=== PATIENT | male | born 1975 | race Caucasian/White ===

== ENCOUNTER 2019-02-06 14:47 | Inpatient (IN) | payer MEDICAID ==
[~2019-02-06] VITALS: Ht 182.9 cm; Wt 148.3 kg
[2019-02-06 16:32] LABS: BASOPHILS % 0.6 % (0.0-2.0); EOSINOPHILS % 2.1 % (0.0-5.0); HEMATOCRIT. 25.7 % (42.0-52.0); HEMOGLOBIN. 9.3 g/dL (14.0-18.0); LYMPHOCYTES % 8.2 % (20.0-50.0); MEAN CORPUSCULAR HEMOGLOBIN 38.6 pg (28.0-32.0); MEAN CORPUSCULAR VOLUME 107.1 fL (80.0-94.0); MONOCYTES % 9.7 % (2.0-8.0); NEUTROPHILS % 79.4 % (40.0-76.0); RED CELL DISTRIBUTION WIDTH 16.2 % (11.6-14.6)
[2019-02-06 16:36] LABS: CHLORIDE 92 mEq/L (98-107)
[2019-02-06 17:05] LABS: MEAN PLATELET VOLUME 8.8 fl (7.4-10.4); PLATELET 61 x1000/uL (130-400)
[2019-02-06] MEDS ORDERED: AZITHROMYCIN 500 MG in DEXT 5% WATER 250 ML IV ONE (17:30)
[2019-02-06] MEDS ORDERED: CEFTRIAXONE 1 G PREMIX 50 ML IV ONE (17:30)
[2019-02-06] MEDS ORDERED: SODIUM CHLORIDE 0.9% 250 ML IV NR (21:13)
[2019-02-06] MEDS ORDERED: TRAMADOL 50MG TABLET PO PRN (21:14)
[2019-02-06] MEDS ORDERED: ALBUMIN HUMAN 25GM/500ML (5%) IV NR (21:45)
[2019-02-07] VITALS (8 sets, daily range): BP systolic 96–121; BP diastolic 31–47
[2019-02-07] MEDS ORDERED: SODIUM CHLORIDE 0.9% 250 ML IV NR (01:30)
[2019-02-07] MEDS: IPRATROPIUM/ALBUTEROL 0.5-3(2.5)MG/3ML NEB HHN PRN ×4 (02:08→21:34)
[2019-02-07] MEDS ORDERED: SPIR50TA5 MT (04:58)
[2019-02-07] MEDS ORDERED: FURO40TA5 MT (04:58)
[2019-02-07] MEDS ORDERED: PROP10TA10 MT (04:59)
[2019-02-07] MEDS: ACETAMINOPHEN 325MG TABLET PO PRN (05:51)
[2019-02-07] MEDS: PANTOPRAZOLE SODIUM 40 MG/VIAL IV SCH (08:46)
[2019-02-07] MEDS: HYDROCODONE/ACETAMINOPHEN 5/325MG TABLET PO PRN ×2 (09:00→18:12)
[2019-02-07] MEDS ORDERED: ONDANSETRON HCL 4MG/2ML INJ IV PRN ×2 (09:00→09:15)
[2019-02-07 10:32] LABS: BASOPHILS % 0.4 % (0.0-2.0); EOSINOPHILS % 2.3 % (0.0-5.0); HEMATOCRIT. 21.4 % (42.0-52.0); HEMOGLOBIN. 7.7 g/dL (14.0-18.0); LYMPHOCYTES % 9.5 % (20.0-50.0); MEAN CORPUSCULAR VOLUME 108.7 fL (80.0-94.0); MEAN PLATELET VOLUME 8.9 fl (7.4-10.4); MONOCYTES % 10.7 % (2.0-8.0); NEUTROPHILS % 77.1 % (40.0-76.0); RED BLOOD CELL COUNT 1.97 mill/uL (4.7-6.1)
[2019-02-07 12:21] LABS: CHLORIDE 94 mEq/L (98-107)
[2019-02-07 14:07] LABS: PLATELET 50 x1000/uL (130-400)
[2019-02-07] MEDS ORDERED: FUROSEMIDE 40MG/4ML VIAL IVP NR (14:15)
[2019-02-07] MEDS: CEFEPIME 2,000 MG in DEXT 5% WATER 100 ML IV SCH (15:54)
[2019-02-07 16:56] LABS: INR 2.8; PARTIAL THROMBOPLASTIN TIME 67.8 sec (23.4-31.0); PROTHROMBIN TIME 27.4 sec (9.6-11.0)
[2019-02-07 17:12] LABS: HEPATITIS B SURFACE ANTIGEN NEGATIVE
[2019-02-07 17:41] LABS: HEPATITIS A AB IGM NEGATIVE (NEGATIVE)
[2019-02-07 19:08] LABS: TOTAL IRON BINDING CAPACITY 183 ug/dL (250-450)
[2019-02-07] MEDS: FUROSEMIDE 40MG/4ML VIAL IVP SCH (21:06)
[2019-02-07 21:52] LABS: FERRITIN 693 ng/mL (22-322)
[2019-02-07 22:05] LABS: VITAMIN B12 SERUM >2000 pg/mL pg/mL (211-911)
[2019-02-08] VITALS: BP 122/45
[2019-02-08] MEDS: CEFEPIME 2,000 MG in DEXT 5% WATER 100 ML IV SCH ×2 (02:54→16:33)
[2019-02-08] MEDS: IPRATROPIUM/ALBUTEROL 0.5-3(2.5)MG/3ML NEB HHN PRN ×3 (03:10→21:42)
[2019-02-08 04:00] VITALS: BP 111/38
[2019-02-08] MEDS: HYDROCODONE/ACETAMINOPHEN 5/325MG TABLET PO PRN ×2 (05:03→12:40)
[2019-02-08] MEDS ORDERED: LORAZEPAM 1MG TABLET PO NR (05:45)
[2019-02-08 08:00] VITALS: BP 109/38
[2019-02-08] MEDS ORDERED: PHYTONADIONE 10MG/ML AMP IM NR (11:15)
[2019-02-08 12:00] VITALS: BP 110/35
[2019-02-08] MEDS ORDERED: PHYTONADIONE 10MG/ML AMP SUBCUT NR (12:15)
[2019-02-08] MEDS: SPIRONOLACTONE 50MG TABLET PO SCH (12:21)
[2019-02-08] MEDS: PANTOPRAZOLE SODIUM 40 MG/VIAL IV SCH (12:21)
[2019-02-08] MEDS: FUROSEMIDE 40MG/4ML VIAL IVP SCH ×2 (12:21→18:03)
[2019-02-08 14:20] LABS: MEAN CORPUSCULAR HEMOGLOBIN 39.5 pg (28.0-32.0); MEAN CORPUSCULAR VOLUME 107.9 fL (80.0-94.0); MEAN PLATELET VOLUME 8.8 fl (7.4-10.4); RED CELL DISTRIBUTION WIDTH 16.1 % (11.6-14.6)
[2019-02-08 14:33] LABS: HEMATOCRIT. 20.5 % (42.0-52.0); HEMOGLOBIN. 7.5 g/dL (14.0-18.0); PLATELET 42 x1000/uL (130-400)
[2019-02-08 14:54] LABS: PLATELET ESTIMATE MARKEDLY DECREASED
[2019-02-08 14:55] LABS: CHLORIDE 94 mEq/L (98-107)
[2019-02-08 16:00] VITALS: BP 96/32
[2019-02-08 20:00] VITALS: BP 118/35
[2019-02-08 21:19] LABS: PROTHROMBIN TIME 29.1 sec (9.6-11.0)
[2019-02-09] VITALS (18 sets, daily range): BP systolic 90–113; BP diastolic 35–54
[2019-02-09] MEDS: CEFEPIME 2,000 MG in DEXT 5% WATER 100 ML IV SCH ×2 (02:21→18:01)
[2019-02-09] MEDS: HYDROCODONE/ACETAMINOPHEN 5/325MG TABLET PO PRN ×3 (02:23→21:16)
[2019-02-09 05:08] LABS: CHLORIDE 93 mEq/L (98-107)
[2019-02-09 05:13] LABS: INR 2.7; PROTHROMBIN TIME 26.5 sec (9.6-11.0)
[2019-02-09] MEDS: IPRATROPIUM/ALBUTEROL 0.5-3(2.5)MG/3ML NEB HHN PRN (05:29)
[2019-02-09 06:25] LABS: BASOPHILS % 0.9 % (0.0-2.0); EOSINOPHILS % 2.9 % (0.0-5.0); HEMOGLOBIN. 7.4 g/dL (14.0-18.0); LYMPHOCYTES % 11.6 % (20.0-50.0); MEAN CORPUSCULAR HEMOGLOBIN 39.5 pg (28.0-32.0); MEAN CORPUSCULAR VOLUME 108.1 fL (80.0-94.0); MONOCYTES % 10.7 % (2.0-8.0); NEUTROPHILS % 73.9 % (40.0-76.0); RED BLOOD CELL COUNT 1.88 mill/uL (4.7-6.1); RED CELL DISTRIBUTION WIDTH 16.8 % (11.6-14.6)
[2019-02-09 06:48] LABS: HEMATOCRIT. 20.3 % (42.0-52.0)
[2019-02-09] MEDS: FUROSEMIDE 40MG/4ML VIAL IVP SCH ×2 (07:32→18:01)
[2019-02-09] MEDS: PANTOPRAZOLE SODIUM 40 MG/VIAL IV SCH (09:00)
[2019-02-09 09:05] LABS: MEAN PLATELET VOLUME 8.7 fl (7.4-10.4); PLATELET 40 x1000/uL (130-400)
[2019-02-09 09:09] LABS: PLATELET ESTIMATE MARKEDLY DECREASED
[2019-02-09] MEDS: SPIRONOLACTONE 50MG TABLET PO SCH (09:18)
[2019-02-09 10:58] LABS: INR 2.2
[2019-02-09 11:48] LABS: BASOPHILS % 0.6 % (0.0-2.0); EOSINOPHILS % 2.7 % (0.0-5.0); HEMOGLOBIN. 7.4 g/dL (14.0-18.0); LYMPHOCYTES % 13.3 % (20.0-50.0); MEAN CORPUSCULAR HEMOGLOBIN 39.4 pg (28.0-32.0); MEAN CORPUSCULAR VOLUME 107.8 fL (80.0-94.0); MEAN PLATELET VOLUME 8.3 fl (7.4-10.4); MONOCYTES % 10.7 % (2.0-8.0); NEUTROPHILS % 72.7 % (40.0-76.0); RED BLOOD CELL COUNT 1.88 mill/uL (4.7-6.1); RED CELL DISTRIBUTION WIDTH 16.6 % (11.6-14.6)
[2019-02-09 11:54] LABS: PLATELET 40 x1000/uL (130-400)
[2019-02-09] MEDS: SODIUM CHLORIDE 0.9% 1,000 ML IV SCH (18:03)
[2019-02-09 19:24] LABS: HEMOGLOBIN 7.3 g/dL (14.0-18.0)
[2019-02-09 19:47] LABS: HEMATOCRIT 20.1 % (42.0-52.0)
[2019-02-09] MEDS ORDERED: PHYTONADIONE 10MG/ML AMP SUBCUT NR (20:15)
[2019-02-09 23:38] LABS: INR 2.2
[2019-02-10] VITALS (19 sets, daily range): BP systolic 69–121; BP diastolic 22–43
[2019-02-10] MEDS: CEFEPIME 2,000 MG in DEXT 5% WATER 100 ML IV SCH ×2 (01:17→17:13)
[2019-02-10] MEDS: IPRATROPIUM/ALBUTEROL 0.5-3(2.5)MG/3ML NEB HHN PRN ×4 (01:25→20:46)
[2019-02-10] MEDS: SODIUM CHLORIDE 0.9% 1,000 ML IV SCH (04:04)
[2019-02-10] MEDS: FUROSEMIDE 40MG/4ML VIAL IVP SCH ×2 (05:32→18:28)
[2019-02-10] MEDS: OMEPRAZOLE 20MG CAPSULE EXTENDED RELEASE PO SCH (05:32)
[2019-02-10] MEDS: HYDROCODONE/ACETAMINOPHEN 5/325MG TABLET PO PRN ×2 (05:38→15:37)
[2019-02-10 07:17] LABS: HEMOGLOBIN 7.5 g/dL (14.0-18.0)
[2019-02-10 07:24] LABS: INR 2.4; PROTHROMBIN TIME 24.2 sec (9.6-11.0)
[2019-02-10 07:25] LABS: HEMATOCRIT 20.9 % (42.0-52.0)
[2019-02-10] MEDS ORDERED: PHYTONADIONE 10MG/ML AMP SUBCUT SCH (08:00)
[2019-02-10] MEDS: SPIRONOLACTONE 50MG TABLET PO SCH (09:00)
[2019-02-10] MEDS ORDERED: FUROSEMIDE 40MG/4ML VIAL IVP NR (09:00)
[2019-02-10 17:00] LABS: INR 2.4; PROTHROMBIN TIME 23.9 sec (9.6-11.0)
[2019-02-10] MEDS ORDERED: VANCOMYCIN 2,000 MG in DEXT 5% WATER 500 ML IV SCH (18:00)
[2019-02-10] MEDS ORDERED: DIPHENHYDRAMINE 50MG/ML VIAL IV NR (18:15)
[2019-02-10] MEDS ORDERED: ACETAMINOPHEN 325MG TABLET PO ONE (18:15)
[2019-02-10] MEDS: ACETAMINOPHEN 325MG TABLET PO PRN ×2 (18:28→23:28)
[2019-02-10] MEDS ORDERED: BISACODYL 10MG SUPP PR PRN (19:15)
[2019-02-10] MEDS: NOREPINEPHRINE 16 MG in DEXT 5% WATER 234 ML IV PRN (22:24)
[2019-02-10] MEDS: LACTULOSE 20G/30ML UDC PO SCH (22:30)
[2019-02-11] VITALS (97 sets, daily range): BP systolic 73–142; BP diastolic 29–78
[2019-02-11] MEDS: CEFEPIME 2,000 MG in DEXT 5% WATER 100 ML IV SCH ×2 (01:00→15:46)
[2019-02-11] MEDS: VANCOMYCIN 1 G PREMIX 200 ML IV SCH ×2 (01:41→09:48)
[2019-02-11] MEDS: IPRATROPIUM/ALBUTEROL 0.5-3(2.5)MG/3ML NEB HHN PRN ×4 (04:24→16:03)
[2019-02-11 05:21] LABS: HEMOGLOBIN. 7.2 g/dL (14.0-18.0); MEAN CORPUSCULAR HEMOGLOBIN 39.9 pg (28.0-32.0); MEAN CORPUSCULAR VOLUME 111.7 fL (80.0-94.0); MEAN PLATELET VOLUME 8.9 fl (7.4-10.4); RED BLOOD CELL COUNT 1.81 mill/uL (4.7-6.1); RED CELL DISTRIBUTION WIDTH 18.3 % (11.6-14.6)
[2019-02-11 05:30] LABS: HEMATOCRIT. 20.2 % (42.0-52.0); INR 2.4; PARTIAL THROMBOPLASTIN TIME 54.5 sec (23.4-31.0); PLATELET 32 x1000/uL (130-400); PROTHROMBIN TIME 23.9 sec (9.6-11.0)
[2019-02-11 05:34] LABS: CHLORIDE 94 mEq/L (98-107)
[2019-02-11] MEDS: LACTULOSE 20G/30ML UDC PO SCH ×3 (06:48→21:04)
[2019-02-11] MEDS: FUROSEMIDE 40MG/4ML VIAL IVP SCH ×2 (07:15→16:45)
[2019-02-11] MEDS: SPIRONOLACTONE 50MG TABLET PO SCH (08:17)
[2019-02-11] MEDS: OMEPRAZOLE 20MG CAPSULE EXTENDED RELEASE PO SCH (08:17)
[2019-02-11 09:29] LABS: BG BASE EXCESS -2.8 mmol/L (-2.0-2.0); BG CARBOXYHEMOGLOBIN 2.2 % (0.5-1.5); BG DEOXYHEMOGLOBIN 3.6 % (0.0-5.0); BG FRACTION INSPIRED OXYGEN 28; BG HCO3 ACT 20.7 mmol/L (22.0-26.0); BG METHEMOGLOBIN 0.2 % (0.0-1.5); BG OXYGEN SATURATION 96.3 % (92.0-98.5); BG PCO2 30.6 mmHg (35.0-45.0); BG PH 7.449 (7.350-7.450); BG SAMPLE SITE RIGHT RADIAL; BG TOTAL HEMOGLOBIN 7.7 g/dL (12.0-18.0); BG VENT MODE NASAL CANNULA
[2019-02-11 10:02] LABS: HEMOGLOBIN 7.4 g/dL (14.0-18.0)
[2019-02-11 10:20] LABS: HEMATOCRIT 20.7 % (42.0-52.0)
[2019-02-11] MEDS ORDERED: POTASSIUM CHLORIDE 20MEQ TABLET SR PO NR (13:00)
[2019-02-11 13:48] LABS: PLATELET ESTIMATE MARKEDLY DECREASED
[2019-02-11] MEDS ORDERED: VANCOMYCIN 1250MG in DEXTROSE 5% WATER 250ML IV SCH (21:00)
[2019-02-12] VITALS (87 sets, daily range): BP systolic 81–116; BP diastolic 30–64
[2019-02-12] MEDS: CEFEPIME 2,000 MG in DEXT 5% WATER 100 ML IV SCH ×2 (01:04→16:51)
[2019-02-12] MEDS: NOREPINEPHRINE 16 MG in DEXT 5% WATER 234 ML IV PRN (01:04)
[2019-02-12] MEDS: ACETAMINOPHEN 325MG TABLET PO PRN (03:54)
[2019-02-12 06:02] LABS: CHLORIDE 96 mEq/L (98-107)
[2019-02-12] MEDS: LACTULOSE 20G/30ML UDC PO SCH ×3 (06:46→21:59)
[2019-02-12 07:26] LABS: HEMATOCRIT. 21.1 % (42.0-52.0); HEMOGLOBIN. 7.6 g/dL (14.0-18.0); MEAN CORPUSCULAR HEMOGLOBIN 38.6 pg (28.0-32.0); MEAN PLATELET VOLUME 8.5 fl (7.4-10.4); RED BLOOD CELL COUNT 1.97 mill/uL (4.7-6.1); RED CELL DISTRIBUTION WIDTH 24.5 % (11.6-14.6)
[2019-02-12 07:37] LABS: PLATELET 26 x1000/uL (130-400)
[2019-02-12] MEDS ORDERED: POTASSIUM CHLORIDE 20MEQ TABLET SR PO NR (08:30)
[2019-02-12] MEDS: OMEPRAZOLE 20MG CAPSULE EXTENDED RELEASE PO SCH (08:33)
[2019-02-12] MEDS: FUROSEMIDE 40MG/4ML VIAL IVP SCH ×2 (08:33→16:51)
[2019-02-12] MEDS: SPIRONOLACTONE 50MG TABLET PO SCH (08:33)
[2019-02-12 10:15] LABS: PLATELET ESTIMATE MARKEDLY DECREASED
[2019-02-12] MEDS: VANCOMYCIN 1 G PREMIX 200 ML IV SCH ×2 (10:43→22:01)
[2019-02-12] MEDS: IPRATROPIUM/ALBUTEROL 0.5-3(2.5)MG/3ML NEB HHN PRN (20:34)
[2019-02-13] VITALS (30 sets, daily range): BP systolic 89–119; BP diastolic 32–60
[2019-02-13] MEDS: CEFEPIME 2,000 MG in DEXT 5% WATER 100 ML IV SCH ×2 (02:09→15:23)
[2019-02-13 05:06] LABS: HIV SCREEN 4G Non Reactive (Non Reactive)
[2019-02-13] MEDS ORDERED: TRAMADOL 50MG TABLET PO PRN (06:00)
[2019-02-13] MEDS: LACTULOSE 20G/30ML UDC PO SCH ×3 (06:00→17:00)
[2019-02-13] MEDS: FUROSEMIDE 40MG/4ML VIAL IVP SCH ×2 (06:21→17:28)
[2019-02-13] MEDS: NOREPINEPHRINE 16 MG in DEXT 5% WATER 234 ML IV PRN (06:49)
[2019-02-13 07:06] LABS: HEMATOCRIT. 20.3 % (42.0-52.0)
[2019-02-13 07:25] LABS: BASOPHILS % 0.3 % (0.0-2.0); EOSINOPHILS % 3.6 % (0.0-5.0); HEMATOCRIT. 22.8 % (42.0-52.0); HEMOGLOBIN. 8.2 g/dL (14.0-18.0); LYMPHOCYTES % 7.5 % (20.0-50.0); MEAN CORPUSCULAR HEMOGLOBIN 37.9 pg (28.0-32.0); MEAN CORPUSCULAR VOLUME 105.4 fL (80.0-94.0); MEAN PLATELET VOLUME 8.4 fl (7.4-10.4); NEUTROPHILS % 81.6 % (40.0-76.0); RED BLOOD CELL COUNT 2.16 mill/uL (4.7-6.1); RED CELL DISTRIBUTION WIDTH 24.8 % (11.6-14.6)
[2019-02-13 07:27] LABS: CHLORIDE 100 mEq/L (98-107)
[2019-02-13 08:22] LABS: PLATELET 23 x1000/uL (130-400)
[2019-02-13] MEDS: OMEPRAZOLE 20MG CAPSULE EXTENDED RELEASE PO SCH (08:30)
[2019-02-13] MEDS: SPIRONOLACTONE 50MG TABLET PO SCH (08:30)
[2019-02-13] MEDS: MIDODRINE HCL 5MG TABLET PO SCH ×3 (11:50→17:27)
[2019-02-13] MEDS ORDERED: LIDOCAINE HCL 1% 20ML VIAL (Pyxis) INJ ONE (12:00)
[2019-02-13 12:25] LABS: INR 2.6; PROTHROMBIN TIME 26.1 sec (9.6-11.0)
[2019-02-13] MEDS: LINEZOLID 600 MG PREMIX 300 ML IV SCH (13:45)
[2019-02-14] VITALS (39 sets, daily range): BP systolic 79–127; BP diastolic 30–69
[2019-02-14] MEDS ORDERED: MORPHINE SULFATE 2 MG/ML CPJ (NOT FOR IM USE) IV SCH (01:27)
[2019-02-14] MEDS: LINEZOLID 600 MG PREMIX 300 ML IV SCH ×2 (01:39→15:28)
[2019-02-14] MEDS: CEFEPIME 2,000 MG in DEXT 5% WATER 100 ML IV SCH ×2 (01:39→15:27)
[2019-02-14] MEDS: NOREPINEPHRINE 16 MG in DEXT 5% WATER 234 ML IV PRN (04:21)
[2019-02-14 06:13] LABS: CHLORIDE 99 mEq/L (98-107)
[2019-02-14 07:01] LABS: BASOPHILS % 1.1 % (0.0-2.0); EOSINOPHILS % 5.6 % (0.0-5.0); HEMATOCRIT. 22.2 % (42.0-52.0); HEMOGLOBIN. 7.9 g/dL (14.0-18.0); LYMPHOCYTES % 10.8 % (20.0-50.0); MEAN CORPUSCULAR HEMOGLOBIN 37.2 pg (28.0-32.0); MEAN CORPUSCULAR VOLUME 104.6 fL (80.0-94.0); MONOCYTES % 9.3 % (2.0-8.0); NEUTROPHILS % 73.2 % (40.0-76.0); RED BLOOD CELL COUNT 2.12 mill/uL (4.7-6.1)
[2019-02-14] MEDS ORDERED: POTASSIUM CHLORIDE INJ 40 MEQ in DEXT 5% WATER 250 ML IV NR (08:30)
[2019-02-14] MEDS: FUROSEMIDE 40MG/4ML VIAL IVP SCH ×2 (08:44→17:08)
[2019-02-14] MEDS: LACTULOSE 20G/30ML UDC PO SCH ×2 (08:44→17:00)
[2019-02-14] MEDS: OMEPRAZOLE 20MG CAPSULE EXTENDED RELEASE PO SCH (08:45)
[2019-02-14] MEDS: MIDODRINE HCL 5MG TABLET PO SCH ×3 (08:45→17:10)
[2019-02-14] MEDS: SPIRONOLACTONE 50MG TABLET PO SCH (08:46)
[2019-02-14] MEDS ORDERED: MORPHINE SULFATE 2 MG/ML CPJ (NOT FOR IM USE) IV NR (10:45)
[2019-02-14 11:23] LABS: PLATELET ESTIMATE MARKEDLY DECREASED
[2019-02-14 11:24] LABS: PLATELET 22 x1000/uL (130-400)
[2019-02-14] MEDS ORDERED: LIDOCAINE HCL 1% 20ML VIAL (Pyxis) INJ ONE (14:00)
[2019-02-14] MEDS ORDERED: SODIUM BICARBONATE 4% (2.4MEQ) 5ML VIAL IV ONE (14:00)
[2019-02-14] MEDS: TRAMADOL 50MG TABLET PO PRN (18:29)
[2019-02-15] VITALS (49 sets, daily range): BP systolic 58–130; BP diastolic 20–75
[2019-02-15] MEDS: LINEZOLID 600 MG PREMIX 300 ML IV SCH ×2 (01:24→13:13)
[2019-02-15] MEDS: TRAMADOL 50MG TABLET PO PRN ×2 (01:33→22:48)
[2019-02-15] MEDS: FUROSEMIDE 40MG/4ML VIAL IVP SCH ×2 (06:27→18:09)
[2019-02-15 06:30] LABS: CHLORIDE 98 mEq/L (98-107)
[2019-02-15 06:36] LABS: INR 2.8; PROTHROMBIN TIME 27.7 sec (9.6-11.0)
[2019-02-15 06:45] LABS: HEMATOCRIT. 23.3 % (42.0-52.0); HEMOGLOBIN. 8.3 g/dL (14.0-18.0); MEAN CORPUSCULAR HEMOGLOBIN 37.6 pg (28.0-32.0); MEAN CORPUSCULAR VOLUME 105.7 fL (80.0-94.0); RED CELL DISTRIBUTION WIDTH 23.3 % (11.6-14.6)
[2019-02-15] MEDS: OMEPRAZOLE 20MG CAPSULE EXTENDED RELEASE PO SCH (08:01)
[2019-02-15] MEDS: SPIRONOLACTONE 50MG TABLET PO SCH (08:02)
[2019-02-15] MEDS: MIDODRINE HCL 5MG TABLET PO SCH ×3 (08:02→21:52)
[2019-02-15] MEDS: LACTULOSE 20G/30ML UDC PO SCH ×2 (08:03→17:00)
[2019-02-15 09:11] LABS: PLATELET ESTIMATE MARKEDLY DECREASED
[2019-02-15 09:12] LABS: PLATELET 24 x1000/uL (130-400)
[2019-02-16] VITALS: BP 103/42
[2019-02-16 00:40] VITALS: BP 98/30
[2019-02-16] MEDS: LINEZOLID 600 MG PREMIX 300 ML IV SCH (01:45)
[2019-02-16 04:00] VITALS: BP 101/32
[2019-02-16] MEDS: MIDODRINE HCL 5MG TABLET PO SCH ×3 (05:49→21:37)
[2019-02-16] MEDS: FUROSEMIDE 40MG/4ML VIAL IVP SCH ×2 (08:30→17:21)
[2019-02-16] MEDS: TRAMADOL 50MG TABLET PO PRN ×3 (08:30→17:22)
[2019-02-16] MEDS: OMEPRAZOLE 20MG CAPSULE EXTENDED RELEASE PO SCH ×2 (08:31→17:22)
[2019-02-16] MEDS: SPIRONOLACTONE 50MG TABLET PO SCH (08:31)
[2019-02-16] MEDS: LACTULOSE 20G/30ML UDC PO SCH ×2 (08:33→17:21)
[2019-02-16 08:43] LABS: HEMATOCRIT. 22.6 % (42.0-52.0); MEAN CORPUSCULAR HEMOGLOBIN 36.8 pg (28.0-32.0); MEAN CORPUSCULAR VOLUME 104.8 fL (80.0-94.0); MEAN PLATELET VOLUME 9.6 fl (7.4-10.4); RED BLOOD CELL COUNT 2.16 mill/uL (4.7-6.1); RED CELL DISTRIBUTION WIDTH 22.8 % (11.6-14.6)
[2019-02-16 08:46] LABS: PLATELET 24 x1000/uL (130-400)
[2019-02-16 09:09] LABS: CHLORIDE 97 mEq/L (98-107)
[2019-02-16 09:51] LABS: PLATELET ESTIMATE MARKEDLY DECREASED
[2019-02-16] MEDS ORDERED: CEFTRIAXONE 2 G PREMIX 50 ML IV SCH (11:45)
[2019-02-16] MEDS: CEFTRIAXONE 1,000 MG in DEXTROSE 5% WATER 50 ML IV SCH (15:53)
[2019-02-16 20:00] VITALS: BP 90/41
[2019-02-17] VITALS: BP 94/32
[2019-02-17] MEDS: MIDODRINE HCL 5MG TABLET PO SCH ×3 (06:22→20:32)
[2019-02-17] MEDS: FUROSEMIDE 40MG/4ML VIAL IVP SCH ×2 (06:22→18:45)
[2019-02-17] MEDS: LACTULOSE 20G/30ML UDC PO SCH ×2 (10:08→18:46)
[2019-02-17] MEDS: SPIRONOLACTONE 50MG TABLET PO SCH (10:09)
[2019-02-17] MEDS: TRAMADOL 50MG TABLET PO PRN (10:09)
[2019-02-17] MEDS ORDERED: LIDOCAINE HCL/PF 1% 2ML VIAL ONE (11:00)
[2019-02-17 11:17] LABS: BG BASE EXCESS 2.7 mmol/L (-2.0-2.0); BG CARBOXYHEMOGLOBIN 2.6 % (0.5-1.5); BG DEOXYHEMOGLOBIN 12.8 % (0.0-5.0); BG FRACTION INSPIRED OXYGEN 21; BG HCO3 ACT 27.2 mmol/L (22.0-26.0); BG METHEMOGLOBIN 0.2 % (0.0-1.5); BG OXYGEN SATURATION 86.8 % (92.0-98.5); BG OXYHEMOGLOBIN 84.4 % (94.0-97.0); BG PCO2 41.6 mmHg (35.0-45.0); BG PH 7.433 (7.350-7.450); BG PO2 52.3 mmHg (75.0-100.0); BG SAMPLE SITE RIGHT RADIAL; BG TOTAL HEMOGLOBIN 8.7 g/dL (12.0-18.0); BG VENT MODE ROOM AIR
[2019-02-17 12:00] VITALS: BP 160/80
[2019-02-17] MEDS: CEFTRIAXONE 1,000 MG in DEXTROSE 5% WATER 50 ML IV SCH (14:20)
[2019-02-17 20:00] VITALS: BP 103/36
[2019-02-18 00:05] VITALS: BP 103/32
[2019-02-18 04:00] VITALS: BP 101/39
[2019-02-18] MEDS: MIDODRINE HCL 5MG TABLET PO SCH ×3 (05:22→22:09)
[2019-02-18] MEDS: TRAMADOL 50MG TABLET PO PRN ×3 (06:13→22:40)
[2019-02-18] MEDS: FUROSEMIDE 40MG/4ML VIAL IVP SCH ×2 (07:03→17:02)
[2019-02-18 08:13] VITALS: BP 107/37
[2019-02-18] MEDS: LACTULOSE 20G/30ML UDC PO SCH ×2 (08:17→16:51)
[2019-02-18] MEDS: SPIRONOLACTONE 50MG TABLET PO SCH (08:21)
[2019-02-18] MEDS: OMEPRAZOLE 20MG CAPSULE EXTENDED RELEASE PO SCH (08:24)
[2019-02-18 11:43] VITALS: BP 103/31
[2019-02-18] MEDS: CEFTRIAXONE 1,000 MG in DEXTROSE 5% WATER 50 ML IV SCH (13:34)
[2019-02-18 15:41] VITALS: BP 108/39
[2019-02-18 20:00] VITALS: BP 105/32
[2019-02-19] VITALS: BP 111/42
[2019-02-19 04:00] VITALS: BP 109/35
[2019-02-19] MEDS: FUROSEMIDE 40MG/4ML VIAL IVP SCH ×2 (06:05→16:23)
[2019-02-19] MEDS: MIDODRINE HCL 5MG TABLET PO SCH ×3 (06:05→22:02)
[2019-02-19] MEDS: TRAMADOL 50MG TABLET PO PRN ×2 (06:05→22:02)
[2019-02-19 08:30] VITALS: BP 105/42
[2019-02-19] MEDS: LACTULOSE 20G/30ML UDC PO SCH ×2 (08:35→16:09)
[2019-02-19] MEDS: OMEPRAZOLE 20MG CAPSULE EXTENDED RELEASE PO SCH (08:38)
[2019-02-19] MEDS: SPIRONOLACTONE 50MG TABLET PO SCH (08:39)
[2019-02-19 12:00] VITALS: BP 101/26
[2019-02-19] MEDS: CEFTRIAXONE 1,000 MG in DEXTROSE 5% WATER 50 ML IV SCH (13:05)
[2019-02-19 16:00] VITALS: BP 110/48
[2019-02-19 20:00] VITALS: BP 99/33
[2019-02-20] VITALS: BP 115/33
[2019-02-20 04:00] VITALS: BP 116/30
[2019-02-20] MEDS: TRAMADOL 50MG TABLET PO PRN (05:29)
[2019-02-20] MEDS: MIDODRINE HCL 5MG TABLET PO SCH ×2 (05:29→13:05)
[2019-02-20] MEDS: FUROSEMIDE 40MG/4ML VIAL IVP SCH ×2 (06:42→16:43)
[2019-02-20 08:00] VITALS: BP_SYST 107; BP_SYST 144; BP_DIAS 40; BP_DIAS 76
[2019-02-20] MEDS: SPIRONOLACTONE 50MG TABLET PO SCH (08:40)
[2019-02-20] MEDS: OMEPRAZOLE 20MG CAPSULE EXTENDED RELEASE PO SCH (08:40)
[2019-02-20] MEDS: LACTULOSE 20G/30ML UDC PO SCH ×2 (08:41→16:01)
[2019-02-20 12:00] VITALS: BP 114/52
[2019-02-20] MEDS: CEFTRIAXONE 1,000 MG in DEXTROSE 5% WATER 50 ML IV SCH (13:06)
[2019-02-20 14:03] VITALS: BP 114/52
[2019-02-20 16:30] VITALS: BP 115/43
== END 2019-02-20 18:48 | disposition home or self-care (01) | DRG 720 ==
LOC: ER 14:47 → 5WST 18:59 → ENRESERV 23:41 → CVICU 02-10 21:22 → 7WST 02-16 00:51
PROVIDERS: ADMIT Internal Medicine; ATTEND Internal Medicine
PROC: 30233K1 Transfusion of Nonautologous Frozen Plasma into Peripheral Vein, Percutaneous Approach (ICD-10-PCS; principal; 2019-02-09)
PROC: 30233N1 Transfusion of Nonautologous Red Blood Cells into Peripheral Vein, Percutaneous Approach (ICD-10-PCS; 2019-02-09)
PROC: 30233R1 Transfusion of Nonautologous Platelets into Peripheral Vein, Percutaneous Approach (ICD-10-PCS; 2019-02-10)
PROC: 05HY33Z Insertion of Infusion Device into Upper Vein, Percutaneous Approach (ICD-10-PCS; 2019-02-14)
PROC: B54MZZA Ultrasonography of Right Upper Extremity Veins, Guidance (ICD-10-PCS; 2019-02-14)
DX: A41.9 Sepsis, unspecified organism (principal); J96.90 Respiratory failure, unspecified, unspecified whether with hypoxia or hypercapnia; R65.21 Severe sepsis with septic shock; J90 Pleural effusion, not elsewhere classified; E46 Unspecified protein-calorie malnutrition; Z76.82 Awaiting organ transplant status; L89.152 Pressure ulcer of sacral region, stage 2; J18.1 Lobar pneumonia, unspecified organism; D68.9 Coagulation defect, unspecified; E87.1 Hypo-osmolality and hyponatremia; D62 Acute posthemorrhagic anemia; D69.6 Thrombocytopenia, unspecified; I27.20 Pulmonary hypertension, unspecified; K92.2 Gastrointestinal hemorrhage, unspecified; L03.114 Cellulitis of left upper limb; K76.6 Portal hypertension; K80.20 Calculus of gallbladder without cholecystitis without obstruction; E66.01 Morbid (severe) obesity due to excess calories; E87.6 Hypokalemia; D68.4 Acquired coagulation factor deficiency; F10.21 Alcohol dependence, in remission; I10 Essential (primary) hypertension; K76.0 Fatty (change of) liver, not elsewhere classified; Z87.891 Personal history of nicotine dependence; Z71.3 Dietary counseling and surveillance; K70.31 Alcoholic cirrhosis of liver with ascites; B18.2 Chronic viral hepatitis C; D64.9 Anemia, unspecified; R16.1 Splenomegaly, not elsewhere classified; I85.10 Secondary esophageal varices without bleeding; Z68.41 Body mass index [BMI] 40.0-44.9, adult
CPT/HCPCS: 36415; 36600; 71045; 73060; 73070; 74176; 76700; 76937; 80048; 80076; 80202; 82105; 82140; 82270; 82375; 82607; 82728; 82746; 82784; 82805; 83540; 83550; 83880; 84484; 85014; 85018; 85049; 85384; 86334; 86705; 86709; 86803; 86850; 86900; 86920; 86927; 86945; 87340; 87389; 93005; 93306; 94640; 96365; 96368; 96375; 97161; 97166; 97530; 99285; C1725; C9113; J0456; J0692; J0696; J1200; J1940; J2020; J2270; J2405; J3370; J3430; J3480; J3490; J7030; J7040; J7060; J7620; P9016; P9017; P9034; P9041